=== PATIENT | female | born 1945 | race Caucasian/White ===

== ENCOUNTER 2018-03-26 14:01 | Emergency (ER) | payer MEDICARE, OTHER, SELFPAY ==
[2018-03-26 14:05] VITALS: BP 104/67; PULSE 74; RESP 19; TEMP 36.9; O2SAT 93
--- NOTE | 2018-03-26 14:11 | ED_ITS ---
HPI - Allergic Reaction General Chief complaint: Allergic Reaction Stated complaint: BEE STING LEFT SHOULDER/UPPER ARM Time Seen by Provider: 03/26/18 14:10 Source: patient Mode of arrival: ambulatory Limitations: no limitations History of Present Illness HPI narrative: Patient is a 72-year-old female here for evaluation of allergic reaction. She states that approximately 1 hr prior to arrival she was stung in the left upper arm by a bee. She has no prior anaphylactic reactions. She states that since then she has been nauseous. No vomiting. Also ?dizzy ?has not taken anything for it prior to arrival. No problems breathing. No vomiting. Related Data Home Medications Medication Instructions Recorded Confirmed Compounded Thyroid Med 1 dose PO DAILY 03/26/18 03/26/18 Previous Rx's Medication Instructions Recorded epinephrine [EpiPen 2-Cipriano] 0.3 mg IM Q10M PRN #2 each 03/26/18 Allergies Allergy/AdvReac Type Severity Reaction Status Date / Time bee venom protein (honey bee) Allergy Verified 03/26/18 14:42 Review of Systems Constitutional Denies fever(s) and Denies headache(s) ENT Ears, Nose, Mouth, and Throat: Denies vertigo, Reports dizziness and Denies headache(s) Cardiovascular Denies chest pain, Denies syncope and Denies dyspnea Respiratory Denies cough, Denies dyspnea and Denies wheezing Gastrointestinal Gastrointestinal: Denies abdominal pain, Denies cramping, Denies diarrhea, Reports nausea and Denies vomiting Genitourinary Denies dysuria Musculoskeletal Denies myalgias, Denies arthralgias and Denies tingling Integumentary/Breasts Comments: Redness around the sting in her left upper arm Neurologic Denies behavioral changes, Denies confusion, Denies vertigo, Reports dizziness, Denies syncope, Denies headache(s), Denies focal weakness and Denies tingling Psychiatric Denies behavioral changes and Denies confusion Hematologic/Lymphatic Denies easy bleeding and Denies easy bruising Allergic/Immunologic Denies wheezing [facility] Medical History Healthy adult (Acute) Surgical History No pertinent past surgical history (Acute) Social History Smoking Status: Never smoker Exam Initial Vital Signs Initial Vital Signs: Vital Signs Temperature 98.4 F 03/26/18 14:05 Pulse Rate 74 03/26/18 14:05 Respiratory Rate 19 03/26/18 14:05 Blood Pressure 104/67 03/26/18 14:05 Pulse Oximetry 93 03/26/18 14:05 Const General: cooperative, healthy appearing, comfortable, well developed, well groomed and No acute distress Orientation: alert, awake and oriented x3 Neck Other: No stridor Resp Effort & Inspection: normal respiratory effort Auscultation: clear to auscultation bilaterally Cardio Rate: regular rate Pulses: radial pulses present GI Inspection: non-distended Palpation: soft, No firm and No tender Skin Rashes: no rashes Other: 1 cm round area of redness on her left anterior upper arm consistent with the site where she was stung by the bee. Neuro General: alert and oriented x3 Cognition: normal cognition Speech: speech normal Extrem General: capillary refill normal Psych Appearance: grossly normal and well kempt Course Orders Ordered: Discontinued Medications Diphenhydramine HCl (Benadryl) 25 mg IV NOW ONE Stop: 03/26/18 14:11 Last Admin: 03/26/18 14:19 Dose: 25 mg Famotidine (Pepcid) 20 mg in 50 mls @ 200 mls/hr IV NOW ONE Stop: 03/26/18 14:24 Last Infusion: 03/26/18 14:40 Dose: 0 mls/hr Admin: 03/26/18 14:20 Dose: 200 mls/hr Sodium Chloride (Normal Saline 0.9%) 1,000 mls @ 1,000 mls/hr IV BOLUS ONE Stop: 03/26/18 15:09 Last Infusion: 03/26/18 15:34 Dose: 0 mls/hr Admin: 03/26/18 14:19 Dose: 1,000 mls/hr Methylprednisolone (Solu-Medrol 125 Mg Vial) 125 mg IV NOW ONE Stop: 03/26/18 14:11 Last Admin: 03/26/18 14:19 Dose: 125 mg Vital Signs - 8 hr 03/26/18 14:05 03/26/18 14:41 Temperature 98.4 F 98.4 F Pulse Rate 74 74 Respiratory Rate 19 19 Blood Pressure 104/67 104/67 Pulse Oximetry 93 93 MDM - Allergic Reaction MDM Narrative Medical decision making narrative: Patient has no prior history of anaphylaxis. She was given Benadryl Solu-Medrol and Pepcid here in the ER with a complete resolution of all of her symptoms. I did discuss the symptoms. Patient was asking to go home. We did discuss return precautions. Was sent home with an EpiPen. She expressed understanding and agreement with plan. Discharge Plan Departure Patient Disposition: Home, Self-Care Clinical Impression: Allergic reaction, Bee sting Instructions: DI for Anaphylaxis, DI for Insect Bites and Stings, DI for General Allergic Reactions Activity Restrictions/Additional Instructions: Call your primary care doctor for a follow-up. No driving for the next 24 hr since you did receive Benadryl here in the emergency department. If you have return of symptoms, problems breathing, rashes, or have your symptoms again after being stung by a bee in the future you do need to return to the emergency department. Prescriptions: New epinephrine [EpiPen 2-Cipriano] 0.3 mg/0.3 mL auto-injector 0.3 mg IM Q10M PRN (Reason: anaphylaxis) Qty: 2 RF: 0 No Action Compounded Thyroid Med 1 dose PO DAILY RF: 0
[2018-03-26] MEDS: methylPREDNISolone 125 MG/2 ML VIAL IV (14:19)
[2018-03-26] MEDS: SODIUM CHLORIDE 0.9% 1,000 ML 1000 ML IV (14:19)
[2018-03-26] MEDS: diphenhydrAMINE 50 MG/ML VIAL 25 MG IV (14:19)
[2018-03-26] MEDS: FAMOTIDINE 20 MG/50 ML PIGGYBACK 200 MG IV (14:20)
[2018-03-26 14:41] VITALS: BP 104/67; PULSE 74; RESP 19; TEMP 36.9; O2SAT 93; BMI 26.5
[2018-03-26 15:30] VITALS: BP 110/79; PULSE 78; RESP 25; O2SAT 98
== END 2018-03-26 15:56 | disposition home or self-care (01) ==
PROVIDERS: Emergency Provider Emergency Medicine
DX: T78.40XA Allergy, unspecified, initial encounter (principal)
CPT/HCPCS: 96361; 96365; 96375; 99283; 99284; J1200; J2930